=== PATIENT | female | born 1950 | race Caucasian/White ===

== ENCOUNTER 2017-09-24 02:31 | Inpatient (IN) | payer OTHER ==
[~2017-09-24] VITALS: Ht 162.6 cm; Wt 73.5 kg
[~2017-09-24 02:31] MED LIST: FEMARA2.5 M1; VITAMIN D2000 UNIT PO
--- NOTE | 2017-09-24 09:20 | Admission Core Measures ---
Acute Coronary Syndrome (CM) ACS Core Measures Acute Coronary Syndrome Diagnosis No Congestive Heart Failure (NEW) CHF Core Measures Congestive Heart Failure Diagnosis No Cerebrovascular Accident (NEW) CVA Core Measures CVA/TIA Diagnosis No Venous Thromboembolism VTE Core [place] (View Protocol) VTE Risk Factors Surgery No Mechanical VTE Prophylaxis d/t N/A MechProphylax Ordered No VTE Pharm Prophylaxis d/t NA PharmProphylax ordered Problem List As ranked by this Provider includes Assessment & Plan 1. Unilateral primary osteoarthritis, right hip HOME MEDS Home Med List Cholecalciferol (Vitamin D3) (Vitamin D) 2,000 UNIT CAPSULE 1 CAP PO DAILY SUPPLEMENT (Reported)
--- NOTE | 2017-09-24 09:22 | Surg Short-stay <48hrs Dis Sum ---
Visit Information Visit Dates Admission Date: 09/24/17 Surgical Short Stay DC Summary Admission Diagnosis: Primary osteoarthritis, right hip Final Diagnosis: Primary osteoarthritis right hip s/p right total hip replacement Procedure(s): Right total hip replacement Summary/Significant Findings: Patient was admitted to the hospital for an elective right total hip replacement. Procedure was tolerated well and patient was transferred to a general surgical floor. Diet was advanced and tolerated. Physical therapy performed evaluation and treatment. At time of hospital discharge, vital signs were stable, neurovascular status was intact, and pain was controlled with the use of oral pain medications. Condition at Discharge: Stable Discharge Disposition: home health services Discharge instructions provided to patient/family: Yes Post discharge follow-up plan: F/u with Dr. Palafox in 6 weeks for postop check
[2017-09-24] MEDS ORDERED: COLACE100 M1 PO (09:44)
[2017-09-24] MEDS ORDERED: DILAUDID2 M1 PO (09:44)
[2017-09-24] MEDS ORDERED: MIRALAX17 G1 PO (09:44)
[2017-09-24] MEDS ORDERED: OMEPRAZOLE20 M2 PO (09:44)
[2017-09-24] MEDS ORDERED: ASPIRIN325 M2 PO (09:44)
--- NOTE | 2017-09-24 10:09 | Patient Discharge Instructions ---
Discharge Instructions General Discharge Information You were seen/treated for: Primary osteoarthritis of right hip You had these procedures: Right total hip replacement Watch for these problems: Increasing pain despite the use of pain medication Increasing redness, warmth or swelling Drainage of any type from incision Inability to bear weight on operative leg Persistent nausea and vomiting Fever greater than 101.5 degrees Do not soak the wound: Yes No bath, but you may shower: Yes Other wound care: Please keep wound clean and dry. No ointments or lotions of any type on or near incision. Your dressing will be changed by your nurse on the second day after your surgery. Daily dry dressing changes are recommended each day thereafter. Do not soak your wound- no tub baths/swimming. You may shower 48hr after surgery. Special Instructions: Aspirin: You are taking this medication to help prevent blood clot formation. Please take with food to protect your stomach lining. Please take as directed. Constipation: Pain medication can cause constipation. It is recommended that you take Colace and Miralax each day. Discontinue this medication if you develop loose stool or diarrhea. If you wish to continue this medication, it is available over the counter. If you are unable to move your bowels or unable to pass gas and are developing bloating, nausea, or vomiting as a result, please contact your doctor. Diet Continue normal diet: Yes Activity Full Activity/No Limits: No Activity Limited to: Weight bear as tolerated Other activity limits: Use rolling walker as needed Acute Coronary Syndrome Inclusion Criteria At DC or during hospital stay patient has or had the following: ACS DIAGNOSIS No Discharge Core Measures Meds if any: Prescribed or Continued at Discharge Meds if any: NOT Prescribed or Continued at Discharge Congestive Heart Failure Inclusion Criteria At DC or during hospital stay patient has or had the following: CHF DIAGNOSIS No Discharge Core Measures Meds if any: Prescribed or Continued at Discharge Meds if any: NOT Prescribed or Continued at Discharge Cerebrovascular accident Inclusion Criteria At DC or during hospital stay patient has or had the following: CVA/TIA Diagnosis No Discharge Core Measures Meds if any: Prescribed or Continued at Discharge Meds if any: NOT Prescribed or Continued at Discharge Venous thromboembolism Inclusion Criteria VTE Diagnosis No VTE Type NONE VTE Confirmed by (Test) NONE Discharge Core Measures - Per Current guidelines, there needs to be overlap - treatment for the first 5 days of Warfarin therapy. - If discharged on Warfarin prior to 5 days of - overlap therapy, the patient will need to be - assessed for post discharge needs including - *Post discharge parental anticoagulation - *Warfarin and/or parental anticoagulation education - *Follow up date to check INR post discharge At least 5 days overlap therapy as Inpatient No Meds if any: Prescribed or Continued at Discharge Note: Overlap Therapy is Warfarin and Anticoagulant Meds if any: NOT Prescribed or Continued at Discharge
--- NOTE | 2017-09-24 11:00 | RADIOLOGY REPORT ---
EXAMINATION: XR HIP, RIGHT CLINICAL INFORMATION: Total hip replacement COMPARISON: None available TECHNIQUE: AP and crosstable lateral views of the right hip. FINDINGS: Examination reveals a normal-appearing total hip replacement. No complications are present. IMPRESSION: Normal postop right hip.
--- NOTE | 2017-09-24 13:59 | PN- Orthopedic ---
Subjective Subjective: Post op check: Tolerated procedue. No c/o pain presently. Sitting in chair. Has yet to ambulate. Has eaten, no nausea or vomitting. Has yet to void. No c /o chest pain, shortness of breath and difficulty breathing. Objective Vital Signs and I&Os Intake & Output 09/24 1600 09/24 0800 09/24 0000 09/23 1600 09/23 0800 09/23 0000 Intake Total Output Total Balance Patient 162 lb 163 lb Weight Weight Reported by Patient Measurement Method Physical Exam: General: Alert and oriented x3, no acute distress Cardiac: RRR, s1s2 Pulm: CTA bilaterally ABD: Non-tender, non-distended Extremiteis: Moves all extremiteis, distal sensation intact. Skin warm and well perfused. Bilateral calves soft and nontender. DP pulses palpable. Surgical site: Right hip. Dressing dry and intact. Thigh compartment soft. Assessment/Plan Assessment/Plan This is a 67 year old female POD 0 s/p R THR. PMH significant for brca -ASA 325 bid for dvt ppx, alps, teds now and at discharge -OOB, wbat -Diet as tolerated -Abx: Ancef x2 g for 2 additional doses -po dilaudid/iv morphine for pain -Anticipate dc to home tomorrow pending pt eval/clearance will discuss with Dr. Palafox Core Measures Venous Thromboembolism VTE Risk Factors Surgery No Mechanical VTE Prophylaxis d/t N/A MechProphylax Ordered No VTE Pharm Prophylaxis d/t NA PharmProphylax ordered
--- NOTE | 2017-09-24 15:12 | Operative Report ---
Operative/Inv Procedure Report Surgery Date: 09/24/17 Name of Procedure: Right total hip replacement Pre-Operative Diagnosis: Primary right hip DJD Post-Operative Diagnosis: Same Estimated Blood Loss: 250 Surgeon/Engineer [employer]: Vivienne MELGAR,Castro [place] Anesthesia: block Operative/Procedure Note Note: Description of Procedure: The patient was taken to the operating room and positively identified. After induction of spinal anesthesia and administration of appropriate pre-operative antibiotics, the patient was positioned supine on the operating room table and all bony prominences were well padded. After performing a surgical timeout, the right lower extremity was prepped and draped in the usual sterile fashion. A direct anterior approach was made to the right hip. The incision was carried sharply through superficial soft tissues to the level of the fascia. Meticulous hemostasis was maintained with Bovie electocautery. The fascia over the tensor fascia tori muscle was opened sharply and the interval between the TFL and the sartorius was entered bluntly taking care to stay lateral to the lateral femoral cutaneous nerve. Retractors were placed around the femoral neck and the pericapsular fat was identified. The ascending branches of the lateral femoral circumflex vessels were identified and carefully coagulated. The pericapsular fat and anterior capsule were then resected. A napkin ring osteotomy was performed and the femoral head was removed without difficulty. Attention was then turned to the acetabulum. After appropriate placement of retractors, the acetabulum was exposed. Soft tissue was cleaned from the acetabular margin and notch. Overhanging osteophytes were removed and the teardrop was exposed. The acetabulum was then sequentially reamed to accept a 54 mm Sarah Tritanium hemispherical solid shell. This was impacted into place in the appropriate position and fitted with a 36 mm Trident X3 zero degree polyethylene insert. Attention was then turned to the femur. After performing the appropriate ligament releases, the proximal femur was exposed. It was then sequentially broached to accept a size #4 [place] Accolade 2 stem. This was trialed for leg length and stability. The trial component was removed and the final component was impacted into place. The trunnion was carefully cleaned and fit with a 36 mm, +0 Biolox delta ceramic femoral head. The hip was reduced and put through a full range of motion and found to be stable. The articular space was then irrigated with sterile saline. The periarticular soft tissues were infilitrated with Marcaine. The fascial layer was closed with interrupted #1 vicryl suture and the skin was re-approximated with interrupted 2 -0 vicryl. The skin was closed with a running 3-0 V-Lock suture. Steri-strips and a sterile dressing were applied. The patient was awakened and taken to the recovery room in satisfactory condition.
[2017-09-24 15:31] VITALS: BP 118/70
[2017-09-24 22:58] VITALS: BP 118/62
[2017-09-25 04:40] VITALS: BP 116/71
--- NOTE | 2017-09-25 07:25 | PN- Orthopedic ---
Subjective Subjective: No acute overnight events reported. Pain controlled overnight although states that she is having some tightness and pain to thigh, distal to incision. Denies chest pain, shortness of breath and difficiulty breathing. Denies nausea and vomitting. Has been voiding. Anticiaptes ambulating with PT today. Anticipates dc to home today. Objective Vital Signs and I&Os Vital Signs Date Time Temp Pulse Resp B/P B/P Pulse O2 O2 Flow FiO2 Mean Ox Delivery Rate 09/25 0440 98.5 77 18 116/71 99 Room Air 09/24 2258 98.2 68 18 118/62 98 Room Air 09/24 2001 Room Air 09/24 1531 97.6 83 18 118/70 98 Room Air Intake & Output 09/25 0800 09/25 0000 09/24 1600 09/24 0800 09/24 0000 09/23 1600 Intake Total 465 1650 Output Total Balance 465 1650 Intake, IV 225 300 Intake, Oral 240 1350 Number 0 0 Bowel Movements Patient 162 lb 163 lb Weight Weight Reported by Patient Measurement Method Physical Exam: General: Alert and oriented x3, no acute distress Cardiac: RRR, s1s2 Pulm: CTA, non labored respiratory effort Abdomen: Non-tender. non-distended Extremities: Moves all extremities, distal sensation intact, skin warm and well perfused. DP pulses palpable bilaterally. Bilateral calves soft and non-tender Surgical site: Right thigh. Dressing dry and intact. Thigh compartment soft. Tenderness with palpation of quads, some tightness appreciated. Assessment/Plan Assessment/Plan This is a 67 year old female, pod 1, s/p R THR. Doing well -Valium prn for spasm to be added -DC iv fluids -OOB, wbat -Continue current pain regimen -Contnue asa 325 bid for dvt ppx -Discharge to home today will d/w Dr. Palafox Core Measures Venous Thromboembolism VTE Risk Factors Surgery No Mechanical VTE Prophylaxis d/t N/A MechProphylax Ordered No VTE Pharm Prophylaxis d/t NA PharmProphylax ordered
[2017-09-25 07:27] VITALS: BP 136/72
[2017-09-25] MEDS ORDERED: VALIUM5 M2 PO (07:43)
[2017-09-25 08:49] LABS: ABSOLUTE BASOPHIL COUNT 0.1 /CUMM (0.0-0.2); ABSOLUTE EOSINOPHIL COUNT 0 /CUMM (0.0-0.7); ABSOLUTE GRANULOCYTE CT 3.4 /CUMM (1.4-6.5); ABSOLUTE LYMPH COUNT 0.8 /CUMM (1.2-3.4); ABSOLUTE MONOCYTE COUNT 0.5 /CUMM (0.10-0.60); BASOPHIL % 1.1 % (0.0-2.0); EOSINOPHIL % 0.8 % (0-5); GRANULOCYTE % 71.8 % (42.2-75.2); HEMATOCRIT 26.3 % (37-47); MEAN CORPUSCULAR HGB 31.4 PG (27.0-31.0); MEAN CORPUSCULAR HGB CONC 33.3 G/DL (33.0-37.0); MEAN CORPUSCULAR VOLUME 94.4 FL (81.0-99.0); MEAN PLATELET VOLUME 7.6 FL (7.4-10.4); PLATELET COUNT 138 /CUMM (130-400); RBC DISTRIBUTION WIDTH 13.9 % (11.5-14.5); RED BLOOD CELL CT 2.79 /CUMM (4.20-5.40); WHITE BLOOD CELL COUNT 4.8 /CUMM (4.8-10.8)
== END 2017-09-25 11:51 | disposition home health service (06) | DRG 470 ==
LOC: SDA 02:31 → ENRESERV 09:43 → ENTRNSPT 10:21 → EDTRNSPTSTS 10:46 → EDTRNSPT 10:46 → 2NB 11:01 → CMPTRNSPT 11:07 → ENPENDDIS 09-25 10:56 → ENTRNSPT 09-25 11:30 → EDTRNSPTSTS 09-25 11:48 → 2NB 09-25 11:51 → CMPTRNSPT 09-25 12:17
PROVIDERS: Physician Assistant Surgical
PROC: 0SR904A Replacement of Right Hip Joint with Ceramic on Polyethylene Synthetic Substitute, Uncemented, Open Approach (ICD-10-PCS; principal; 2017-09-24)
DX: M16.11 Unilateral primary osteoarthritis, right hip (principal); M25.751 Osteophyte, right hip
CPT/HCPCS: 2NBP; 36415; 73502-RT; 82436; 97116-GO; 97161-GP; 97530-GO; J0690; J0735; J2405; J2550; J3490; J7042